=== PATIENT | male | born 2000 | race Caucasian/White ===

== ENCOUNTER 2023-09-14 16:04 | Emergency (ER) | payer BC ==
[~2023-09-14] VITALS: Ht 172.7 cm; Wt 69.9 kg
[2023-09-14 16:06] VITALS: BP 110/71; PULSE 74; RESP 16; TEMP 97; O2SAT 99
[2023-09-14] MEDS ORDERED: LIDOCAINE MPF 1% 10 MG/ML VIAL INJ ONE (16:30)
[2023-09-14] MEDS ORDERED: BACI-418 TP (17:24)
[2023-09-14] MEDS ORDERED: ACET-2619 PO (17:24)
[2023-09-14] MEDS ORDERED: BACITRACIN OINT 500 UNITS/GM PKT TP ONE (17:35)
== END 2023-09-14 17:45 | disposition home or self-care (01) ==
LOC: MED 16:04
DX: S01.21XA Laceration without foreign body of nose, initial encounter (principal); Z79.899 Other long term (current) drug therapy; Z79.2 Long term (current) use of antibiotics; W22.8XXA Striking against or struck by other objects, initial encounter; Y93.89 Activity, other specified; Y92.89 Other specified places as the place of occurrence of the external cause; Y99.8 Other external cause status
CPT/HCPCS: 12013; 70486; 90471; 90715; 99285; J2001